=== PATIENT | female | born 1970 | race African-American/Black ===

== ENCOUNTER → 2016-08-04 | Day surgery (SDC) | payer MEDICAID, OTHER ==
[~2016-08-04] VITALS: Ht 160 cm; Wt 127.2 kg
[~2016-08-04] MED LIST: AMIT50TA3 PO; AMLO10TA2 PO; BENA20TA PO; BUPIVACAINE HCL PF 0.5% 30 ML VIAL ONE; BUPIVACAINE/EPINEPHRINE 0.5% PF 30 ML VIAL INFIL ONE; CHLORHEXIDINE GLUCONATE 2 % 1 PACK (2 CLOTHS) TOPICAL PRN; CHLORHEXIDINE GLUCONATE 4% SOLN 120 ML BTL TOPICAL SCH; CYCL1TAB29 PO; DICY20TA10 PO; FAMOTIDINE 20 MG/2 ML VIAL ONE; HYDR-3583 PO; HYDR25TA5 PO; INSULIN HUMAN REGULAR 1,000 UNITS/10 ML VIAL SQ PRN; LACTATED RINGER'S 1000 ML IV PRN; LURA20TA PO; LYRI100C PO; LYRI150C PO; MELO7.5T4 PO; META1TAB19 PO; METO100T9 PO; METOCLOPRAMIDE HCL 10 MG/2 ML VIAL ONE; METOPROLOL TARTRATE 25 MG TAB PO PRN; MIDAZOLAM HCL 5 MG/ML VIAL (1 ML) ONE; MIRA50TA PO; MORPHINE SULFATE 4 MG/ML INJ ONE; MYCO500T PO; OMEP20TA PO; ONDANSETRON HCL 4 MG/2 ML VIAL IV PUSH ONE; OXYC-395 PO; PHENYLEPH/NS 1000 MCG/10 ML SYR IV ONE; POVIDONE IODINE 5% (ANTISEPSIS KIT) 4 APPLICATIONS EACH NARE PRN; PROPOFOL 200 MG/20 ML AMP IV ONE; ROPI.5 PO; SODIUM CHLOR 0.9% 250 ML INJ 250 ML ONE; SODIUM CHLORID 0.9% 500 ML IV PRN; VANCOMYCIN 1000 MG/NS 250 ML (for <70 kg) IV SCH; VANCOMYCIN HCL 1000 MG VIAL ONE; ceFAZolin 2 GM PREMIX 50 ML IV SCH
[2016-08-04 11:05] VITALS: BP 137/98; PULSE 80; RESP 16; TEMP 98.4; O2SAT 99
[2016-08-04 11:10] VITALS: PULSE 80
[2016-08-04 12:18] VITALS: PULSE 90
[2016-08-04 14:00] VITALS: PULSE 93
[2016-08-04 15:05] VITALS: BP 127/88; PULSE 117; RESP 16; O2SAT 94
--- NOTE | 2016-08-06 18:42 | MP ---
cc: JUSTINO CHANEY M.D. DATE OF SURGERY: 08/04/2016. PREOPERATIVE DIAGNOSIS: 1. Impingement syndrome of the right shoulder. 2. Osteoarthritis of the acromioclavicular joint. POSTOPERATIVE DIAGNOSIS: 1. Chronic tear rotator cuff right shoulder. 2. Impingement syndrome right shoulder with tendinosis. 3. Arthritis of the acromioclavicular joint. OPERATIVE PROCEDURE PERFORMED: Anterior decompression with repair rotator cuff and excision of distal clavicle. SURGEON: Justino Chaney MD. DESCRIPTION OF THE PROCEDURE IN DETAIL: The patient was placed in the supine position and then placed in the modified beach-chair position after adequate general anesthesia was administered by the anesthesiologist. The patient's right shoulder was prepped and draped in the usual sterile fashion. Time-out was called and the patient's name, location, procedure et cetera were fully verified. A local subcutaneous infiltration of 6 mL of 0.5% Marcaine with epinephrine was used for hemostasis. A 1 to 1-1/2 inch incision was made over the acromial process and taken down through subcutaneous tissues. All bleeding points were electrocauterized. Dissection was carried down to the fascia which was incised and then down to the area of the acromioclavicular joint and acromial process along the anterior border. The deltoid muscle insertion was then disinserted with electrocautery protecting the under rotator cuff and bursa. The coracoacromial ligament was thickened and was then excised exposing obvious bursitis. This was debrided and the mostly removed. The acromioclavicular joint was identified and found to be prominent. There was still motion at the joint itself. There was obvious osteoarthritis involving the joint and approximately 1 to 1.5 cm of distal clavicle was excised protecting the undersurface with retractors. A power saw was utilized for this. The edges were then smoothed with a rongeur and then a final smoothing with a rasp. The acromial process was decompressed and partially removed with a high-speed power bur. There was obvious impingement and after removal of the acromion, we were able to place more than a fingerbreadth underneath it without further impingement. We then examined the rotator cuff throughout its extent. Partial tearing was present at the supraspinatus insertion area and two separate areas which were thinned down and appeared to be with impending complete tear. We therefore reinforced it and repaired it with interrupted sutures of #2 FiberWire. The rest of the rotator cuff was intact and no longer impinging. A thorough irrigation was carried out. The undersurface of the acromion was also rasped. The deltoid muscle was repaired to the bone itself with interrupted sutures of #1 TiCron. Subcutaneous tissue was closed with interrupted 2-0 Vicryl. Skin edges were approximated with a running subcuticular 4-0 Vicryl. Steri-Strips were then applied followed by a bulky dressing. Sponge count, needle counts and instrument counts were reported correct x2. The estimated blood loss was minimal. The patient was transferred to the recovery room in satisfactory condition and without complications. Justino Chaney MD NALINI/BRUNA /1:48 PM /6:35 PM
== END | disposition home or self-care (01) ==
LOC: PHSDC 10:43
PROVIDERS: ATTEND Orthopaedic Surgery
DX: M75.111 Incomplete rotator cuff tear or rupture of right shoulder, not specified as traumatic (principal); M75.41 Impingement syndrome of right shoulder; M19.011 Primary osteoarthritis, right shoulder; Z88.8 Allergy status to other drugs, medicaments and biological substances
CPT/HCPCS: 23120; 23412; 64450; J0690; J2250; J2270; J2370; J2405; J2765; J3010; J3370; J7050; J7120

== ENCOUNTER 2017-05-21 11:00 | Emergency (ER) | payer OTHER ==
[~2017-05-21] VITALS: Ht 160 cm; Wt 118.0 kg
[~2017-05-21 11:00] MED LIST changes: -BUPIVACAINE HCL PF 0.5% 30 ML VIAL ONE; -BUPIVACAINE/EPINEPHRINE 0.5% PF 30 ML VIAL INFIL ONE; -CHLORHEXIDINE GLUCONATE 2 % 1 PACK (2 CLOTHS) TOPICAL PRN; -CHLORHEXIDINE GLUCONATE 4% SOLN 120 ML BTL TOPICAL SCH; -CYCL1TAB29 PO; -FAMOTIDINE 20 MG/2 ML VIAL ONE; -HYDR-3583 PO; -INSULIN HUMAN REGULAR 1,000 UNITS/10 ML VIAL SQ PRN; -LACTATED RINGER'S 1000 ML IV PRN; -LURA20TA PO; -LYRI100C PO; +MELO7.5T27 PO; -MELO7.5T4 PO; -METO100T9 PO; +METO1TAB43 PO; -METOCLOPRAMIDE HCL 10 MG/2 ML VIAL ONE; -METOPROLOL TARTRATE 25 MG TAB PO PRN; -MIDAZOLAM HCL 5 MG/ML VIAL (1 ML) ONE; -MORPHINE SULFATE 4 MG/ML INJ ONE; -OMEP20TA PO; +OMEP20TA93 PO; -ONDANSETRON HCL 4 MG/2 ML VIAL IV PUSH ONE; -PHENYLEPH/NS 1000 MCG/10 ML SYR IV ONE; -POVIDONE IODINE 5% (ANTISEPSIS KIT) 4 APPLICATIONS EACH NARE PRN; -PROPOFOL 200 MG/20 ML AMP IV ONE; -ROPI.5 PO; -SODIUM CHLOR 0.9% 250 ML INJ 250 ML ONE; -SODIUM CHLORID 0.9% 500 ML IV PRN; -VANCOMYCIN 1000 MG/NS 250 ML (for <70 kg) IV SCH; -VANCOMYCIN HCL 1000 MG VIAL ONE; -ceFAZolin 2 GM PREMIX 50 ML IV SCH
[2017-05-21 11:07] VITALS: BP 144/76; PULSE 80; RESP 16; TEMP 98.8; O2SAT 97
[2017-05-21] MEDS ORDERED: SODIUM CHLOR 0.9% 1000 ML INJ 1,000 ML IV SCH (11:32)
[2017-05-21] MEDS ORDERED: ATOR20TA15 PO (11:33)
[2017-05-21] MEDS ORDERED: MYCO500T PO (11:33)
[2017-05-21] MEDS ORDERED: OXYC1TAB36 PO (11:33)
[2017-05-21] MEDS ORDERED: METO1TAB43 PO (11:33)
[2017-05-21] MEDS ORDERED: LYRI200C PO (11:33)
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
[2017-05-21] MEDS ORDERED: SODIUM CHLORIDE 0.9% FLUSH 10 ML FLUSH IV FLUSH PRN (11:45)
[2017-05-21] MEDS ORDERED: traMADol HCL 50 MG TAB PO ONE (11:45)
[2017-05-21 12:00] LABS: BILIRUBIN, URINE NEG (NEG); BLOOD, URINE NEG (NEG); GLUCOSE,URINE NEG (NEG); KETONE, URINE NEG (NEG); NITRITE,URINE NEG (NEG); URINE COLOR YELLOW (YELLW/STRAW); URINE LEUKOCYTE ESTERASE NEG (NEG)
[2017-05-21 12:06] LABS: BACTERIA, URINE MOD /hpf
[2017-05-21 12:07] LABS: CALCIUM OXALATE CRYSTALS,URINE MOD /hpf; WBC, URINE 0-2 /hpf (0-5)
[2017-05-21 12:08] LABS: SQUAMOUS EPITHELIAL CELL URINE 0-5 /hpf (0-5)
[2017-05-21 12:15] VITALS: O2SAT 95
[2017-05-21 12:21] LABS: AUTOMATED NEUTROPHIL # 4.3 TH/MM3 (1.8-7.7); BASOPHIL # 0.2 TH/MM3 (0-0.2); BASOPHIL % 2.5 % (0.0-2.0); EOSINOPHIL # 0.1 TH/MM3 (0-0.4); EOSINOPHIL % 0.8 % (0.0-4.0); HEMATOCRIT 37.9 % (35.0-46.0); HEMOGLOBIN 12.1 GM/DL (11.6-15.3); LYMPH % 30.9 % (9.0-44.0); LYMPHOCYTE # 2.4 TH/MM3 (1.0-4.8); MEAN CELL VOLUME 82.8 FL (80.0-100.0); MEAN CORPUSCULAR HEMOGLOBIN 26.4 PG (27.0-34.0); MEAN CORPUSCULAR HGB CONC 31.9 % (32.0-36.0); MEAN PLATELET VOLUME 7.5 FL (7.0-11.0); MONOCYTE # 0.8 TH/MM3 (0-0.9); NEUT % 55.8 % (16.0-70.0); PLATELET COUNT 355 TH/MM3 (150-450); RED BLOOD COUNT 4.58 MIL/MM3 (4.00-5.30); WHITE BLOOD COUNT 7.8 TH/MM3 (4.0-11.0)
[2017-05-21 13:07] LABS: CHLORIDE 104 MEQ/L (98-107); SODIUM (NA) 139 MEQ/L (136-145)
[2017-05-21 13:11] LABS: ALBUMIN 3.5 GM/DL (3.4-5.0); BICARBONATE 29.3 MEQ/L (21.0-32.0); BLOOD UREA NITROGEN 13 MG/DL (7-18); CALCIUM 9.2 MG/DL (8.5-10.1); GLUCOSE,RANDOM 91 MG/DL (74-106)
[2017-05-21 13:14] LABS: ALT (GPT) 38 U/L (10-53); AST (GOT) 34 U/L (15-37); CREATININE 0.64 MG/DL (0.50-1.00); GLOMERULAR FILTRATION RATE 120 ML/MIN (>89)
[2017-05-21 13:16] LABS: TOTAL BILIRUBIN ADULT 0.4 MG/DL (0.2-1.0); TOTAL PROTEIN 7.7 GM/DL (6.4-8.2)
[2017-05-21 13:17] LABS: ALKALINE PHOSPHATASE 137 U/L (45-117)
[2017-05-21] MEDS ORDERED: IOHEXOL 350 MG/ML 10 ML VIAL (for RAD DIAG) IVCONTRAST ONE (13:40)
--- NOTE | 2017-05-21 14:28 | RADRPT ---
EXAM DATE/TIME: 05/21/2017 13:29 [facility] COMPARISON: No previous studies available for comparison. INDICATIONS : Left lower quadrant and inguinal pain radiating to right side. IV CONTRAST: 95 cc Omnipaque 350 (iohexol) IV ORAL CONTRAST: No oral contrast ingested. RADIATION DOSE: 22.30 CTDIvol (mGy) MEDICAL HISTORY : Hypertension. Gastroesophageal reflux disease. SURGICAL HISTORY : Gastric bypass. section.Hysterectomy.Right hip surgery. ENCOUNTER: Initial ACUITY: 3 months PAIN SCALE: 5/10 LOCATION: Left lower quadrant TECHNIQUE: Volumetric scanning of the abdomen and pelvis was performed. Using automated exposure control and ad justment of the mA and/or kV according to patient size, radiation dose was kept as low as reasonably achievable to obtain optimal diagnostic quality images. DICOM format image data is available electro nically for review and comparison. FINDINGS: LOWER LUNGS: The visualized lower lungs are clear. LIVER: Homogeneous density without lesion. There is no dilation of the biliary tree. No calcified gallston es. SPLEEN: Normal size without lesion. PANCREAS: Within normal limits. KIDNEYS: Normal in size and shape. There is no mass, stone or hydronephrosis. ADRENAL GLANDS: Within normal limits. VASCULAR: There is no aortic aneurysm. BOWEL/MESENTERY: The patient is post gastric bypass. There are no findings to indicate bowel obstruction. ABDOMINAL WALL: Within normal limits. RETROPERITONEUM: There is no lymphadenopathy. BLADDER: No wall thickening or mass. REPRODUCTIVE: Within normal limits. INGUINAL: There is no lymphadenopathy or hernia. MUSCULOSKELETAL: The patient is post right hip arthroplasty. The osseous structures are otherwise intact. CONCLUSION: 1. The patient is post gastric bypass. There are no findings to indicate bowel obstruction. 2. No definite abnormality to explain the lower abdominal pain is identified. 3. The patient is post right hip arthroplasty. Eddie Davis MD on May 21, 2017 at 14:02 Board Certified Radiologist. This report was verified electronically.
--- NOTE | 2017-05-21 14:32 | RADRPT ---
EXAM DATE/TIME: 05/21/2017 13:29 [facility] COMPARISON: No previous studies available for comparison. INDICATIONS : Left hip pain. No known injury. RADIATION DOSE: 21.50 CTDIvol (mGy) MEDICAL HISTORY : Gastroesophageal reflux disease. Hypertension. SURGICAL HISTORY : Gastric bypass. section. Hysterectomy.Right hip surgery. ENCOUNTER: Initial ACUITY: 3 months PAIN SCALE: 5/10 LOCATION: Left pelvis TECHNIQUE: Volumetric scanning of the hip was performed. Using automated exposure control and adjustment of the mA and/or kV according to patient size, radiation dose was kept as low as reasonably achievable to o btain optimal diagnostic quality images. DICOM format image data is available electronically for rev iew and comparison. FINDINGS: BONES: No evidence of fracture. Alignment is within normal limits. JOINTS: There are mild osteoarthritic changes within the left hip joint. SOFT TISSUES: Muscles, tendons and neurovascular structures are grossly unremarkable. No evidence of mass, organize d fluid collection, or foreign body. CONCLUSION: 1. Mild osteoarthritic changes within the left hip joint. No acute fracture or destructive lesion sukhjinder ntified. Eddie Davis MD on May 21, 2017 at 14:26 Board Certified Radiologist. This report was verified electronically.
[2017-05-21 14:45] VITALS: BP 110/76; PULSE 76; RESP 16; O2SAT 98
[2017-05-21] MEDS ORDERED: POTASSIUM CHLORIDE 25 MEQ EFFERVESCENT TAB PO ONE (14:45)
[2017-05-21] MEDS ORDERED: TRAM50TA PO (15:00)
--- NOTE | 2017-05-22 16:39 | EKG ---
Date Performed: 05/21/2017 Time Performed: 12:45:31 PTAGE: 47 years EKG: Sinus rhythm NONSPECIFIC T-WAVE ABNORMALITY Since previous tracing, no significant change noted BORDERLINE ECG PREVIOUS TRACING : 06/04/2015 04.08 DOCTOR: Robb Domínguez Interpretating Date/Time 05/22/2017 16:38:10
== END 2017-05-21 15:28 | disposition home or self-care (01) ==
LOC: PHED 11:00
DX: E87.6 Hypokalemia (principal); R10.32 Left lower quadrant pain; R94.31 Abnormal electrocardiogram [ECG] [EKG]; M35.3 Polymyalgia rheumatica; M79.7 Fibromyalgia; G89.29 Other chronic pain; J45.909 Unspecified asthma, uncomplicated; I10 Essential (primary) hypertension; E78.00 Pure hypercholesterolemia, unspecified
CPT/HCPCS: 73700; 74177; 80053; 81001; 83690; 84703; 85025; 87086; 93005; 96360; 96361; 99285; J7030; Q9967